=== PATIENT | male | born 1985 | race Caucasian/White ===

== ENCOUNTER 2021-06-06 00:30 | Emergency (ER) | payer MEDICARE, OTHER ==
[~2021-06-06] VITALS: Ht 175.3 cm; Wt 115.7 kg
[2021-06-06 02:16] LABS: BASOPHILS ABSOLUTE AUTO 0.05 K/mm3 (0.00-0.23); BASOPHILS PERCENT AUTO 0 % (0-2); EOSINOPHILS ABSOLUTE AUTO 0.11 K/mm3 (0.00-0.68); EOSINOPHILS PERCENT AUTO 1 % (0-6); Hematocrit 45.3 % (37.0-53.0); Hemoglobin 15.6 g/dL (13.5-17.5); IMMATURE GRAN ABSOLUTE AUTO 0.02 K/mm3 (0.00-0.10); IMMATURE GRAN PERCENT AUTO 0 % (0-1); LYMPHOCYTES ABSOLUTE AUTO 2.86 K/mm3 (0.84-5.20); LYMPHOCYTES PERCENT AUTO 26 % (21-46); MONOCYTES ABSOLUTE AUTO 0.78 K/mm3 (0.16-1.47); MONOCYTES PERCENT AUTO 7 % (4-13); Mean Corpuscular HGB 30.2 pg (26.0-34.0); Mean Corpuscular HGB Conc 34.4 g/dL (31.5-36.5); Mean Corpuscular Volume 88 fL (80-100); Mean Platelet Volume 11.1 fL (9.1-12.4); NEUTROPHILS ABSOLUTE AUTO 7.31 K/mm3 (1.96-9.15); NEUTROPHILS PERCENT AUTO 66 % (41-73); Platelet Count 212 K/mm3 (150-400); RDW Standard Deviation 44.2 fL (35.1-46.3); Red Blood Cell Count 5.17 M/mm3 (4.30-5.90); White Blood Cell Count 11.13 K/mm3 (4.00-11.30)
[2021-06-06] MEDS ORDERED: ONDA8 PO (02:16)
[2021-06-06] MEDS ORDERED: ADEMPAS PO (02:17)
[2021-06-06] MEDS ORDERED: UPTRAVI PO (02:18)
[2021-06-06] MEDS ORDERED: LORA10ER PO (02:18)
[2021-06-06] MEDS ORDERED: AMBRISENTAN10 MG PO (02:19)
[2021-06-06] MEDS ORDERED: LANOXIN125 MCG PO (02:19)
[2021-06-06] MEDS ORDERED: SPIR25 PO (02:19)
[2021-06-06] MEDS ORDERED: BUME2 PO (02:20)
[2021-06-06] MEDS ORDERED: ALBU2.5V5 INH (02:21)
[2021-06-06 02:34] LABS: Bun/Creatinine Ratio 15.3 (12.0-20.0); Creatinine, Blood 1.57 mg/dL (0.60-1.20); Potassium, Blood 2.6 mmol/L (3.5-5.5); Troponin I 0.024 ng/mL (0.000-0.040)
[2021-06-06 03:20] LABS: Digoxin (Lanoxin) 0.23 ug/mL (0.80-2.00); Magnesium, Blood 2.2 mg/dL (1.6-2.4)
[2021-06-06] MEDS ORDERED: K-Dur20 MEQ PO (04:16)
== END 2021-06-06 04:32 | disposition home or self-care (01) ==
LOC: ER 00:30
PROVIDERS: Student in an Organized Health Care Education/Training Program
DX: R55 Syncope and collapse (principal); E87.6 Hypokalemia; I50.9 Heart failure, unspecified; R89.2 Abnormal level of other drugs, medicaments and biological substances in specimens from other organs, systems and tissues; I27.21 Secondary pulmonary arterial hypertension; Z79.899 Other long term (current) drug therapy
CPT/HCPCS: 80048; 80162; 83735; 83880; 84484; 85025; 93005; 93010; 99284-25; A9270

== ENCOUNTER 2021-06-19 22:50 | Inpatient (IN) | payer MEDICARE, OTHER ==
[~2021-06-19] VITALS: Ht 175.3 cm; Wt 123.3 kg
[~2021-06-19 22:50] MED LIST: ADEMPAS PO; ALBU2.5V5 INH; AMBRISENTAN10 MG PO; BUME2 PO; K-Dur20 MEQ PO; LANOXIN125 MCG PO; LORA10ER PO; ONDA8 PO; SPIR25 PO; UPTRAVI PO
[2021-06-19] MEDS ORDERED: Bumetanide2 MG PO (23:46)
[2021-06-19] MEDS ORDERED: ADEMPAS PO (23:47)
[2021-06-19] MEDS ORDERED: UPTRAVI PO (23:48)
[2021-06-20 00:07] LABS: BASOPHILS ABSOLUTE AUTO 0.04 K/mm3 (0.00-0.23); BASOPHILS PERCENT AUTO 0 % (0-2); EOSINOPHILS ABSOLUTE AUTO 0.14 K/mm3 (0.00-0.68); EOSINOPHILS PERCENT AUTO 1 % (0-6); Hematocrit 39.2 % (37.0-53.0); Hemoglobin 13.6 g/dL (13.5-17.5); IMMATURE GRAN ABSOLUTE AUTO 0.05 K/mm3 (0.00-0.10); IMMATURE GRAN PERCENT AUTO 0 % (0-1); LYMPHOCYTES ABSOLUTE AUTO 1.54 K/mm3 (0.84-5.20); LYMPHOCYTES PERCENT AUTO 12 % (21-46); MONOCYTES ABSOLUTE AUTO 0.87 K/mm3 (0.16-1.47); MONOCYTES PERCENT AUTO 7 % (4-13); Mean Corpuscular HGB 30.6 pg (26.0-34.0); Mean Corpuscular HGB Conc 34.7 g/dL (31.5-36.5); Mean Corpuscular Volume 88 fL (80-100); Mean Platelet Volume 11.4 fL (9.1-12.4); NEUTROPHILS ABSOLUTE AUTO 10.58 K/mm3 (1.96-9.15); NEUTROPHILS PERCENT AUTO 80 % (41-73); NRBC ABSOLUTE 0.02 K/mm3 (0.00-0.02); NRBC Auto 0.2 /100 WBC (0.0-0.2); Platelet Count 215 K/mm3 (150-400); RDW Coefficient Variation 13.9 % (11.7-14.2); RDW Standard Deviation 44.7 fL (35.1-46.3); Red Blood Cell Count 4.45 M/mm3 (4.30-5.90); White Blood Cell Count 13.22 K/mm3 (4.00-11.30)
[2021-06-20 00:27] LABS: Albumin, Blood 2.9 g/dL (3.4-5.0); Albumin/Globulin Ratio 0.8 (0.8-1.8); Bilirubin, Total 0.7 mg/dL (0.1-1.0); Bun/Creatinine Ratio 11.4 (12.0-20.0); Calcium, Blood 7.8 mg/dL (8.5-10.1); Creatinine, Blood 2.02 mg/dL (0.60-1.20); Globulin, Blood 3.7 g/dL (2.2-4.0); Total Protein, Blood 6.6 g/dL (6.4-8.2); Troponin I 0.025 ng/mL (0.000-0.040)
[2021-06-20 00:58] LABS: SARS-Cov-2 (COVID-19) PCR, MMC NEGATIVE (NEGATIVE)
--- NOTE | 2021-06-20 06:14 | NUR ---
SHIFT SUMMARY: PT IS ALERT AND ORIENTED. PT IS CALM AND COOPERATIVE WITH CARE. PT CALLS APPROPRIATELY. PT IS A STANDBY ASSIST, URINAL INDEPENDENTLY. PT REPORTS BACK PAIN, GAVE PRN TYLENOL. PT DENIES NAUSEA AND VOMITING. SOB WITH EXERTION, 2 L 02 KEEPING SATS > 90%. NO ACUTE CHANGES OR COMPLICATIONS THIS SHIFT. WILL CONTINUE TO MONITOR.
[2021-06-20 06:15] LABS: Bun/Creatinine Ratio 12.3 (12.0-20.0); Calcium, Blood 8.2 mg/dL (8.5-10.1); Creatinine, Blood 2.04 mg/dL (0.60-1.20); Potassium, Blood 2.9 mmol/L (3.5-5.5)
--- NOTE | 2021-06-20 14:22 | NUR ---
RESTING COMFORTABLY. ECHO COMPLETED THIS MORNING. DENIES PAIN OR COMPLAINTS AT THIS TIME. OXYGEN IN PLACE AT 3L. HOB ELEVATED. LE EDEMA 1+ FINE CRACKLES TO BASES.
--- NOTE | 2021-06-20 17:54 | NUR ---
PT GONE AMA. ALL RISKS EXPLAINED TO HIM. EXPLAINED RISKS WELL NURSING STAFF. WAS AT HIS SIDE AND STATED,"HE HAS GONE AMA MANY TIMES IN HIS LIFE. HAS BEEN ON 4L OF OXYGEN T/O DAY TO MAINTAIN SATURATIONS. RA IS BASELINE.
== END 2021-06-20 17:44 | disposition left against medical advice (07) | DRG 291 ==
LOC: ER 22:50 → MEDS 06-20 02:38
PROVIDERS: Emergency Medicine; ADMIT Internal Medicine
DX: I50.23 Acute on chronic systolic (congestive) heart failure (principal); J96.01 Acute respiratory failure with hypoxia; R65.10 Systemic inflammatory response syndrome (SIRS) of non-infectious origin without acute organ dysfunction; I31.3 Pericardial effusion (noninflammatory); I27.21 Secondary pulmonary arterial hypertension; Z20.822 Contact with and (suspected) exposure to COVID-19; E87.5 Hyperkalemia; N18.30 Chronic kidney disease, stage 3 unspecified; Z53.29 Procedure and treatment not carried out because of patient's decision for other reasons; E87.6 Hypokalemia; Z79.899 Other long term (current) drug therapy
CPT/HCPCS: 36415; 71045; 80048; 80053; 83880; 84484; 85025; 93005; 93010; 93306; 96374; 99285-25; A9270; J1644; J1940; U0004

== ENCOUNTER 2021-06-22 15:43 | Inpatient (IN) | payer MEDICARE, OTHER ==
[~2021-06-22] VITALS: Ht 175.3 cm; Wt 114.8 kg
[~2021-06-22 15:43] MED LIST changes: +Bumetanide2 MG PO
[2021-06-22 16:24] LABS: BASOPHILS ABSOLUTE AUTO 0.04 K/mm3 (0.00-0.23); BASOPHILS PERCENT AUTO 0 % (0-2); EOSINOPHILS ABSOLUTE AUTO 0.09 K/mm3 (0.00-0.68); EOSINOPHILS PERCENT AUTO 1 % (0-6); Hematocrit 49.3 % (37.0-53.0); Hemoglobin 17.1 g/dL (13.5-17.5); IMMATURE GRAN ABSOLUTE AUTO 0.07 K/mm3 (0.00-0.10); IMMATURE GRAN PERCENT AUTO 1 % (0-1); LYMPHOCYTES ABSOLUTE AUTO 2.01 K/mm3 (0.84-5.20); LYMPHOCYTES PERCENT AUTO 14 % (21-46); MONOCYTES ABSOLUTE AUTO 0.91 K/mm3 (0.16-1.47); MONOCYTES PERCENT AUTO 6 % (4-13); Mean Corpuscular HGB 30.5 pg (26.0-34.0); Mean Corpuscular HGB Conc 34.7 g/dL (31.5-36.5); Mean Corpuscular Volume 88 fL (80-100); NEUTROPHILS ABSOLUTE AUTO 11.31 K/mm3 (1.96-9.15); NEUTROPHILS PERCENT AUTO 78 % (41-73); NRBC ABSOLUTE 0.03 K/mm3 (0.00-0.02); NRBC Auto 0.2 /100 WBC (0.0-0.2); Platelet Count 263 K/mm3 (150-400); RDW Coefficient Variation 14.1 % (11.7-14.2); RDW Standard Deviation 44.3 fL (35.1-46.3); Red Blood Cell Count 5.61 M/mm3 (4.30-5.90); White Blood Cell Count 14.43 K/mm3 (4.00-11.30)
[2021-06-22 16:53] LABS: Albumin, Blood 3.1 g/dL (3.4-5.0); Albumin/Globulin Ratio 0.6 (0.8-1.8); Bilirubin, Total 0.9 mg/dL (0.1-1.0); Bun/Creatinine Ratio 9.8 (12.0-20.0); Calcium, Blood 9.2 mg/dL (8.5-10.1); Creatinine, Blood 3.58 mg/dL (0.60-1.20); Globulin, Blood 4.8 g/dL (2.2-4.0); Potassium, Blood 2.8 mmol/L (3.5-5.5); Total Protein, Blood 7.9 g/dL (6.4-8.2); Troponin I 0.026 ng/mL (0.000-0.040)
[2021-06-22 17:28] LABS: SARS-Cov-2 (COVID-19) PCR, MMC NEGATIVE (NEGATIVE)
[2021-06-22 17:31] LABS: International Normalized Ratio 1.03; Prothrombin Time Results 11.1 Sec (9.7-11.5)
[2021-06-22] MEDS ORDERED: Cialis20 MG PO (18:43)
[2021-06-22 21:01] LABS: Bun/Creatinine Ratio 9.9 (12.0-20.0); Calcium, Blood 9.1 mg/dL (8.5-10.1); Creatinine, Blood 3.84 mg/dL (0.60-1.20); Potassium, Blood 2.8 mmol/L (3.5-5.5)
--- NOTE | 2021-06-23 04:02 | NUR ---
SHIFT SUMMARY A/OX4, COOPERATIVE WITH CARE. C/O MILD ABD DISCOMFORT, DENIES N/V. RA AT BASELINE, CURRENTLY ON 4L VIA NC. PT UNABLE TO TOLERATE IV POTASSIUM, PER PHARMACY THERE IS A LIDOCAINE SHORTAGE. VB DEVELOPER PROVIDER NOTIFIED, 40MEQ PO POTASSIUM GIVEN. VSS, NO ACUTE CHANGES AT THIS TIME. BED IN LOWEST POSITION WITH CALL LIGHT IN REACH. WILL CONTINUE TO MONITOR AND REPORT TO ONCOMING RN.
[2021-06-23 05:16] LABS: Bun/Creatinine Ratio 10.3 (12.0-20.0); Calcium, Blood 9.6 mg/dL (8.5-10.1); Creatinine, Blood 4.06 mg/dL (0.60-1.20)
--- NOTE | 2021-06-23 08:36 | NUR ---
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 DR TURCIOS MADE AWARE OF THESE- NO NEW ORDERS AT THIS TIME BUT STATED HE WILL LOOK INTO IT.
[2021-06-23 16:58] LABS: Appearance, Urine Clear (Clear); Bilirubin, Urine Neg (Neg); Blood, Urine 1+ (Neg); Color, Urine Yellow (P-Yellow); Glucose Qualitative, Urine Neg (Neg); Ketones, Urine Neg (Neg); Leukocyte Esterase, Urine Neg (Neg); Nitrite, Urine Neg (Neg); Protein, Urine Neg (Neg); Urobilinogen, Urine NORM (Normal); pH, Urine 6.5 (5.0-8.0)
[2021-06-23 17:07] LABS: Bacteria Few /hpf; Red Blood Cells, Urine 0-2 /hpf (0-2); Squamous Epithelial Cells Rare /hpf (Few)
[2021-06-23 17:17] LABS: Albumin, Blood 3.6 g/dL (3.4-5.0); Anion Gap 12 mmol/L (6-16); Blood Urea Nitrogen 44 mg/dL (8-24); Bun/Creatinine Ratio 11.3 (12.0-20.0); CO2, Blood 32 mmol/L (21-32); Calcium, Blood 9.8 mg/dL (8.5-10.1); Chloride, Blood 88 mmol/L (98-108); Creatinine, Blood 3.88 mg/dL (0.60-1.20); Glomerular Filtration Rate 18 (60-); Glucose, Blood 104 mg/dL (70-99); Magnesium, Blood 2.6 mg/dL (1.6-2.4); Phosphorus, Blood 4.5 mg/dL (2.5-4.9); Sodium, Blood 132 mmol/L (136-145)
--- NOTE | 2021-06-23 18:07 | NUR ---
Shift Summary A/Ox3, pleasant with care. Up to bathroom independently. Calls for needs appropriately. No seizure-like activity this shift. VQ scan completed. Patient had ST depression noted on tele, from 3.2 down to 2.[address] Weir is aware of ST depression. Denied pain. C/O shortness of breath with exertion. On 3.5 L oxygen via NC. Appetite is good. WCTM.
[2021-06-24 04:53] LABS: BASOPHILS ABSOLUTE AUTO 0.05 K/mm3 (0.00-0.23); BASOPHILS PERCENT AUTO 1 % (0-2); EOSINOPHILS ABSOLUTE AUTO 0.12 K/mm3 (0.00-0.68); EOSINOPHILS PERCENT AUTO 1 % (0-6); Hematocrit 47.5 % (37.0-53.0); Hemoglobin 16.3 g/dL (13.5-17.5); IMMATURE GRAN ABSOLUTE AUTO 0.05 K/mm3 (0.00-0.10); IMMATURE GRAN PERCENT AUTO 1 % (0-1); LYMPHOCYTES ABSOLUTE AUTO 2.82 K/mm3 (0.84-5.20); LYMPHOCYTES PERCENT AUTO 26 % (21-46); MONOCYTES PERCENT AUTO 7 % (4-13); Mean Corpuscular HGB 30.5 pg (26.0-34.0); Mean Corpuscular HGB Conc 34.3 g/dL (31.5-36.5); Mean Corpuscular Volume 89 fL (80-100); Mean Platelet Volume 10.5 fL (9.1-12.4); NEUTROPHILS ABSOLUTE AUTO 6.96 K/mm3 (1.96-9.15); NEUTROPHILS PERCENT AUTO 64 % (41-73); Platelet Count 262 K/mm3 (150-400); RDW Coefficient Variation 14.4 % (11.7-14.2); RDW Standard Deviation 45.6 fL (35.1-46.3); Red Blood Cell Count 5.34 M/mm3 (4.30-5.90)
--- NOTE | 2021-06-24 05:18 | NUR ---
SHIFT SUMMARY A/OX4, PLEASANT AND COOPERATIVE WITH CARE. DENIIES PAIN OR SOB. VSS, NO ACUTE CHANGES AT THIS TIME. BED IN LOWEST POSITION WITH CALL LIGHT IN REACH. WILL CONTINUE TO MONITOR AND REPORT TO ONCOMING RN.
[2021-06-24 05:37] LABS: Albumin, Blood 2.9 g/dL (3.4-5.0); Albumin/Globulin Ratio 0.7 (0.8-1.8); Bilirubin, Total 0.5 mg/dL (0.1-1.0); Bun/Creatinine Ratio 12.9 (12.0-20.0); Calcium, Blood 8.7 mg/dL (8.5-10.1); Creatinine, Blood 3.96 mg/dL (0.60-1.20); Globulin, Blood 4.4 g/dL (2.2-4.0); Potassium, Blood 3.1 mmol/L (3.5-5.5); Total Protein, Blood 7.3 g/dL (6.4-8.2)
--- NOTE | 2021-06-24 10:45 | NUR ---
TRANSFER OF CARE Transferred to [facility] Rm [id number]. Report handed to Pearl, RN's. Patient refused heparin, IV potassium, and IV rocephin. States he believes he does not have pneumonia and therefore refused to be treated for something he does not have. Also states IV potassium "elizabeth". Dr. Weir and Dr. Nicole notified of refusals. A/Ox4 at time of discharge. AM meds given, whole with water. IV patent to [facility], saline locked. Personal belongings sent with patient including home meds. New order for PO potassium placed by Dr. Nicole. Patient states he wants to go home. Requesting to be titrated off oxygen, receiving RN's aware.
--- NOTE | 2021-06-24 11:38 | NUR ---
PT REQUESTED FOR OXYGEN SUPPLEMATION TO BE DC'S. DISCUSSED TITRATING O2 DOWN AND MONITORING. @ 1106 TITRATED PT DOWN TO 1.5L O2 AT 94%. TITRATED PT DOWN TO 02 AT 1120, PT SATURATION DROPPED TO 89%. PT PUT BACK ON O2 AT 2L. MAINTATING 95%.
--- NOTE | 2021-06-24 11:59 | NUR ---
PT. UP TO CHAIR TO EAT HIS LUNCH. CALL LIGHT WITHIN REACH. PT. CONTINUES WITH O2 INTACT.
--- NOTE | 2021-06-24 12:03 | NUR ---
CHECKED ON PT. PT. TALKING WITH SOMEONE ON HIS PHONE. PT. STATED "LEAVE ME ALONE."
--- NOTE | 2021-06-24 12:34 | NUR ---
V.O. BY DR. TURCIOS OK FOR PT.TO GO AMA. AMA PAPER SIGNED BY PT. V.O. WAS TAKEN BY [facility].TMG. PT. PULLED OUT HIS OWN IV EVEN WHEN NURSE TOLD HIM THAT [facility] WOULD DISCONTINUE IT. PT. DID LET [facility] WRAP IT WITH COBAN. PT. STATED "NOTHING AGAINST YOU GUYS. I JUST WANT TO GO HOME." PT. PACKED UP HIS BELONGINGS & WALKED OUT OF [facility] WITHOUT HIS RIDE EVEN BEING HERE. PT. VERBALIZED HIS WAS ON HER WAY TO PICK HIM UP.
--- NOTE | 2021-06-24 12:44 | NUR ---
1229 WHEN PT. WAS GIVEN THE RISKS OF LEAVING AMA & BENEFITS, PT. VERBALIZED BENEFITS WOULD BE HE COULD AT HOME & NOT IN THE HOSPITAL.
--- NOTE | 2021-06-24 13:23 | NUR ---
3RD FLOOR TO LET DR. GERONIMO KNOW THAT PT. WENT AMA.
== END 2021-06-24 11:45 | disposition left against medical advice (07) | DRG 291 ==
LOC: ER 15:43 → ERHOLD 18:30 → MEDS 18:30 → ORSCIP 18:30 → MEDS 20:19 → ORSCIP 06-24 10:57
PROVIDERS: Internal Medicine; Physician Assistant; ADMIT Hospitalist
DX: I50.33 Acute on chronic diastolic (congestive) heart failure (principal); J96.01 Acute respiratory failure with hypoxia; I26.99 Other pulmonary embolism without acute cor pulmonale; N17.9 Acute kidney failure, unspecified; N18.5 Chronic kidney disease, stage 5; I27.21 Secondary pulmonary arterial hypertension; Z66 Do not resuscitate; Z20.822 Contact with and (suspected) exposure to COVID-19; E87.6 Hypokalemia; F15.10 Other stimulant abuse, uncomplicated; Z53.29 Procedure and treatment not carried out because of patient's decision for other reasons; Z87.891 Personal history of nicotine dependence; Z90.49 Acquired absence of other specified parts of digestive tract
CPT/HCPCS: 36415; 71045; 71046; 74176; 78582; 80048; 80053; 80069; 81001; 83690; 83735; 83880; 84145; 84484; 85025; 85379; 85610; 93005; 93010; 96374; 99285-25; A9270; A9540; J1940; J3480; U0004

== ENCOUNTER 2021-09-03 01:45 | Emergency (ER) | payer MEDICARE, OTHER ==
[~2021-09-03] VITALS: Ht 175.3 cm; Wt 121.1 kg
[~2021-09-03 01:45] MED LIST changes: +Cialis20 MG PO
[2021-09-03 02:26] LABS: BASOPHILS ABSOLUTE AUTO 0.02 K/mm3 (0.00-0.23); BASOPHILS PERCENT AUTO 0 % (0-2); EOSINOPHILS ABSOLUTE AUTO 0.01 K/mm3 (0.00-0.68); EOSINOPHILS PERCENT AUTO 0 % (0-6); Hemoglobin 16.3 g/dL (13.5-17.5); IMMATURE GRAN ABSOLUTE AUTO 0.02 K/mm3 (0.00-0.10); IMMATURE GRAN PERCENT AUTO 0 % (0-1); LYMPHOCYTES ABSOLUTE AUTO 0.97 K/mm3 (0.84-5.20); LYMPHOCYTES PERCENT AUTO 11 % (21-46); MONOCYTES PERCENT AUTO 11 % (4-13); Mean Corpuscular HGB 29.6 pg (26.0-34.0); Mean Corpuscular Volume 87 fL (80-100); NEUTROPHILS ABSOLUTE AUTO 6.62 K/mm3 (1.96-9.15); NEUTROPHILS PERCENT AUTO 78 % (41-73); Platelet Count 209 K/mm3 (150-400); RDW Coefficient Variation 13.8 % (11.7-14.2); RDW Standard Deviation 44.2 fL (35.1-46.3); White Blood Cell Count 8.54 K/mm3 (4.00-11.30)
[2021-09-03 02:43] LABS: Alanine Aminotransfer (ALT/SGP 67 U/L (12-78); Albumin, Blood 3.7 g/dL (3.4-5.0); Albumin/Globulin Ratio 0.9 (0.8-1.8); Alk Phos 88 U/L (50-136); Anion Gap 10 mmol/L (6-16); Aspartate Aminotrans (AST/SGOT 29 U/L (12-37); Bilirubin, Total 0.7 mg/dL (0.1-1.0); Blood Urea Nitrogen 26 mg/dL (8-24); Bun/Creatinine Ratio 13.9 (12.0-20.0); CO2, Blood 24 mmol/L (21-32); Calcium, Blood 8.8 mg/dL (8.5-10.1); Chloride, Blood 102 mmol/L (98-108); Creatinine, Blood 1.87 mg/dL (0.60-1.20); Glomerular Filtration Rate 41 (60-); Glucose, Blood 95 mg/dL (70-99); Potassium, Blood 2.6 mmol/L (3.5-5.5); Salicylate <1.7 mg/dL (2.8-20.0); Sodium, Blood 136 mmol/L (136-145); Total Protein, Blood 7.7 g/dL (6.4-8.2)
[2021-09-03 02:52] LABS: Acetaminophen, Random <2.0 ug/mL (10.0-30.0)
== END 2021-09-03 03:44 | disposition home or self-care (01) ==
LOC: ER 01:45
PROVIDERS: Student in an Organized Health Care Education/Training Program
DX: R45.851 Suicidal ideations (principal); I50.9 Heart failure, unspecified; N18.30 Chronic kidney disease, stage 3 unspecified
CPT/HCPCS: 80053; 85025; 99284; G0480; Q3014

== ENCOUNTER 2022-01-26 00:21 | Inpatient (IN) | payer MEDICARE, OTHER ==
[~2022-01-26] VITALS: Ht 175.3 cm; Wt 117.9 kg
[2022-01-26 00:59] LABS: BASOPHILS ABSOLUTE AUTO 0.03 K/mm3 (0.00-0.23); BASOPHILS PERCENT AUTO 1 % (0-2); EOSINOPHILS ABSOLUTE AUTO 0.05 K/mm3 (0.00-0.68); EOSINOPHILS PERCENT AUTO 1 % (0-6); Hematocrit 40.8 % (37.0-53.0); Hemoglobin 13.5 g/dL (13.5-17.5); IMMATURE GRAN ABSOLUTE AUTO 0.02 K/mm3 (0.00-0.10); IMMATURE GRAN PERCENT AUTO 0 % (0-1); LYMPHOCYTES ABSOLUTE AUTO 1.53 K/mm3 (0.84-5.20); LYMPHOCYTES PERCENT AUTO 23 % (21-46); MONOCYTES ABSOLUTE AUTO 0.68 K/mm3 (0.16-1.47); MONOCYTES PERCENT AUTO 10 % (4-13); Mean Corpuscular HGB 28.5 pg (26.0-34.0); Mean Corpuscular HGB Conc 33.1 g/dL (31.5-36.5); Mean Corpuscular Volume 86 fL (80-100); Mean Platelet Volume 11.2 fL (9.1-12.4); NEUTROPHILS ABSOLUTE AUTO 4.34 K/mm3 (1.96-9.15); NEUTROPHILS PERCENT AUTO 65 % (41-73); Platelet Count 207 K/mm3 (150-400); RDW Coefficient Variation 15.4 % (11.7-14.2); RDW Standard Deviation 48.3 fL (35.1-46.3); Red Blood Cell Count 4.73 M/mm3 (4.30-5.90); White Blood Cell Count 6.65 K/mm3 (4.00-11.30)
[2022-01-26 01:17] LABS: Albumin, Blood 3.4 g/dL (3.4-5.0); Bilirubin, Total 0.9 mg/dL (0.1-1.0); Bun/Creatinine Ratio 12.3 (12.0-20.0); Calcium, Blood 8.6 mg/dL (8.5-10.1); Creatinine, Blood 2.04 mg/dL (0.60-1.20); Globulin, Blood 3.5 g/dL (2.2-4.0); Potassium, Blood 3.7 mmol/L (3.5-5.5); Total Protein, Blood 6.9 g/dL (6.4-8.2)
[2022-01-26 02:00] LABS: Influenza A, PCR NEGATIVE (NEGATIVE); Influenza B, PCR NEGATIVE (NEGATIVE); Resp Syncytial Virus, PCR NEGATIVE (NEGATIVE); SARS-Cov-2 (COVID-19) PCR, MMC NEGATIVE (NEGATIVE)
[2022-01-26] MEDS ORDERED: KLOR-CON 1010 ME6 PO (03:35)
[2022-01-26] MEDS ORDERED: PRED FORTE5 ML LEFTEYE (03:36)
[2022-01-26] MEDS ORDERED: ATROPINE SULFATE2 M5 LEFTEYE (03:37)
[2022-01-26] MEDS ORDERED: KLONOPIN0.5 M6 PO (03:40)
[2022-01-26] MEDS ORDERED: AZIT250 PO (03:42)
[2022-01-26] MEDS ORDERED: AMBRISENTAN10 MG PO (04:37)
[2022-01-26 05:17] LABS: BASOPHILS ABSOLUTE AUTO 0.04 K/mm3 (0.00-0.23); BASOPHILS PERCENT AUTO 1 % (0-2); EOSINOPHILS ABSOLUTE AUTO 0.06 K/mm3 (0.00-0.68); EOSINOPHILS PERCENT AUTO 1 % (0-6); Hemoglobin 13.3 g/dL (13.5-17.5); IMMATURE GRAN ABSOLUTE AUTO 0.02 K/mm3 (0.00-0.10); IMMATURE GRAN PERCENT AUTO 0 % (0-1); LYMPHOCYTES ABSOLUTE AUTO 1.75 K/mm3 (0.84-5.20); LYMPHOCYTES PERCENT AUTO 28 % (21-46); MONOCYTES ABSOLUTE AUTO 0.57 K/mm3 (0.16-1.47); MONOCYTES PERCENT AUTO 9 % (4-13); Mean Corpuscular HGB 28.3 pg (26.0-34.0); Mean Corpuscular HGB Conc 32.4 g/dL (31.5-36.5); Mean Corpuscular Volume 87 fL (80-100); Mean Platelet Volume 11.2 fL (9.1-12.4); NEUTROPHILS ABSOLUTE AUTO 3.88 K/mm3 (1.96-9.15); NEUTROPHILS PERCENT AUTO 62 % (41-73); Platelet Count 199 K/mm3 (150-400); RDW Coefficient Variation 15.3 % (11.7-14.2); RDW Standard Deviation 49.1 fL (35.1-46.3); White Blood Cell Count 6.32 K/mm3 (4.00-11.30)
[2022-01-26 05:39] LABS: Albumin, Blood 3.4 g/dL (3.4-5.0); Albumin/Globulin Ratio 0.9 (0.8-1.8); Bilirubin, Total 0.9 mg/dL (0.1-1.0); Bun/Creatinine Ratio 12.8 (12.0-20.0); Calcium, Blood 8.9 mg/dL (8.5-10.1); Creatinine, Blood 1.95 mg/dL (0.60-1.20); Globulin, Blood 3.6 g/dL (2.2-4.0); Potassium, Blood 3.2 mmol/L (3.5-5.5)
--- NOTE | 2022-01-26 06:40 | NUR ---
PM SHIFT SUMMARY PATIENT HAD C/O SOB, WEIGHT GAIN OF 20LBS IN 4 DAYS AND WET COUGH. NOTES ALSO STATE HE HAD MULTIPLE POST-TUSSIVE SYNCOPE EVENTS OVER THOSE 4 DAYS. HE IS ON 5L VIA NC. HE IS COVID NEGATIVE. THIS CHF EXACERBATION HAS CAUSED BLE +3 PITTING EDEMA. HE ALSO SHOWS DECREASED KIDNEY FUCNTION WITH HX OF CKD STAGE 3. HE HAD NO OTHER COMPLAINTS DURING THE SHIFT.
[2022-01-26 07:53] LABS: U Amphetamine Screen DETECTED; U Barbituate Screen Not Detected; U Benzodiazapine Screen Not Detected; U Cocaine Screen Not Detected; U Methadone Screen Not Detected; U Methamphetamine Screen DETECTED; U Opiates Screen Not Detected
[2022-01-26 07:54] LABS: U Buprenorphine Screen Not Detected; U Cannabinoids Screen Not Detected; U Oxycodone Screen Not Detected; U Phencyclidine Screen Not Detected; U Propoxyphene Screen Not Detected
--- NOTE | 2022-01-26 18:46 | NUR ---
165 PT REPORTED THAT HE WAS GOING TO GO AMA AND STARTED TAKING OFF TELE MX AND WANTING IV SITE D/C'D. PT ENCOURAGED TO CONTINUE TO GET CARE. PT REPORTED THAT HE WILL RETURN TO [place] TO HIS ORIGINAL DOCTORS. PT SIGNED AMA FORM. DR COVINGTON NOTIFIED OF PT'S LEAVING. IV SITE D/C'D WN.
== END 2022-01-26 17:45 | disposition left against medical advice (07) | DRG 291 ==
LOC: ER 00:21 → MEDS 03:04
PROVIDERS: Family Medicine; Student in an Organized Health Care Education/Training Program; ADMIT Internal Medicine
DX: I50.23 Acute on chronic systolic (congestive) heart failure (principal); J96.01 Acute respiratory failure with hypoxia; N18.30 Chronic kidney disease, stage 3 unspecified; I27.20 Pulmonary hypertension, unspecified; F19.10 Other psychoactive substance abuse, uncomplicated; Z20.822 Contact with and (suspected) exposure to COVID-19; Z79.899 Other long term (current) drug therapy; F17.200 Nicotine dependence, unspecified, uncomplicated; I50.813 Acute on chronic right heart failure
CPT/HCPCS: 0241U; 36415; 71046; 80053; 83735; 83880; 84484; 85025; 93005; 93010; 93306; 94762; 96374; 99285-25; A9270; J1940

== ENCOUNTER 2022-02-12 17:26 | Emergency (ER) | payer MEDICARE, OTHER ==
[~2022-02-12] VITALS: Ht 175.3 cm; Wt 113.4 kg
[~2022-02-12 17:26] MED LIST changes: +ATROPINE SULFATE2 M5 LEFTEYE; +AZIT250 PO; +KLONOPIN0.5 M6 PO; +KLOR-CON 1010 ME6 PO; +PRED FORTE5 ML LEFTEYE
[2022-02-12 18:06] LABS: BASOPHILS ABSOLUTE AUTO 0.03 K/mm3 (0.00-0.23); BASOPHILS PERCENT AUTO 1 % (0-2); EOSINOPHILS ABSOLUTE AUTO 0.02 K/mm3 (0.00-0.68); EOSINOPHILS PERCENT AUTO 0 % (0-6); Hematocrit 41.5 % (37.0-53.0); Hemoglobin 13.5 g/dL (13.5-17.5); IMMATURE GRAN ABSOLUTE AUTO 0.01 K/mm3 (0.00-0.10); IMMATURE GRAN PERCENT AUTO 0 % (0-1); LYMPHOCYTES ABSOLUTE AUTO 0.98 K/mm3 (0.84-5.20); LYMPHOCYTES PERCENT AUTO 15 % (21-46); MONOCYTES ABSOLUTE AUTO 0.51 K/mm3 (0.16-1.47); MONOCYTES PERCENT AUTO 8 % (4-13); Mean Corpuscular HGB 28.4 pg (26.0-34.0); Mean Corpuscular HGB Conc 32.5 g/dL (31.5-36.5); Mean Corpuscular Volume 87 fL (80-100); Mean Platelet Volume 10.2 fL (9.1-12.4); NEUTROPHILS ABSOLUTE AUTO 4.91 K/mm3 (1.96-9.15); NEUTROPHILS PERCENT AUTO 76 % (41-73); Platelet Count 256 K/mm3 (150-400); RDW Coefficient Variation 15.9 % (11.7-14.2); RDW Standard Deviation 50.9 fL (35.1-46.3); Red Blood Cell Count 4.75 M/mm3 (4.30-5.90); White Blood Cell Count 6.46 K/mm3 (4.00-11.30)
[2022-02-12 18:24] LABS: Albumin, Blood 3.6 g/dL (3.4-5.0); Bilirubin, Total 1.7 mg/dL (0.1-1.0); Bun/Creatinine Ratio 14.1 (12.0-20.0); Calcium, Blood 9.3 mg/dL (8.5-10.1); Creatinine, Blood 1.99 mg/dL (0.60-1.20); Globulin, Blood 3.7 g/dL (2.2-4.0); Magnesium, Blood 2.5 mg/dL (1.6-2.4); Potassium, Blood 4.1 mmol/L (3.5-5.5); Total Protein, Blood 7.3 g/dL (6.4-8.2)
== END 2022-02-12 22:54 | disposition home or self-care (01) ==
LOC: ER 17:26
PROVIDERS: Physician Assistant
DX: I13.0 Hypertensive heart and chronic kidney disease with heart failure and stage 1 through stage 4 chronic kidney disease, or unspecified chronic kidney disease (principal); R60.0 Localized edema; N18.30 Chronic kidney disease, stage 3 unspecified; I50.30 Unspecified diastolic (congestive) heart failure; I27.21 Secondary pulmonary arterial hypertension; Z79.899 Other long term (current) drug therapy; F17.200 Nicotine dependence, unspecified, uncomplicated
CPT/HCPCS: 36415; 71045; 80053; 83735; 83880; 84484; 85025; 93005; 93010; 96374; 99284-25; J1940